=== PATIENT | female | born 1955 | race Two or more races ===

== ENCOUNTER 2017-10-14 23:46 | Emergency (ER) | payer OTHER ==
[~2017-10-14] VITALS: Ht 152.4 cm; Wt 63.5 kg
[2017-10-15 00:10] VITALS: BP 121/73
== END 2017-10-15 06:28 | disposition left against medical advice (07) ==
LOC: ER 23:50
DX: R51 Headache (principal); Z53.21 Procedure and treatment not carried out due to patient leaving prior to being seen by health care provider
CPT/HCPCS: 70450